=== PATIENT | male | born 1990 | race African-American/Black ===

== ENCOUNTER 2021-04-02 07:45 | Emergency (ER) | payer SELFPAY ==
[2021-04-02] MEDS ORDERED: predniSONE 20 MG TAB ONE (09:39)
[2021-04-02] MEDS ORDERED: diphenhydrAMINE 25 MG CAP ONE (09:39)
[2021-04-02] MEDS ORDERED: Famotidine 20 MG TAB ONE (09:39)
== END 2021-04-02 09:45 | disposition home or self-care (01) ==
LOC: ERS 07:45
DX: L50.9 Urticaria, unspecified (principal); F17.210 Nicotine dependence, cigarettes, uncomplicated
CPT/HCPCS: 99282; J7512; Q0163